=== PATIENT | male | born 1990 | race African-American/Black ===

== ENCOUNTER 2024-05-05 18:09 | Emergency (ER) | payer SELFPAY ==
--- NOTE | ~2024-05-05 | XR_ITS ---
EXAMINATION: XR CERVICAL SPINE CLINICAL INFORMATION: Pain COMPARISON: None available. TECHNIQUE: 3 views of the cervical spine were obtained. FINDINGS: There are no prevertebral soft tissue or bony abnormalities demonstrated. No compression fractures or subluxations are identified. Alignment is maintained at the atlanto-axial articulation. The disc spaces are preserved. Mild endplate degenerative changes at C5-C6 and C6-C7. The prevertebral soft tissues are normal. The foramina are patent. 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
[2024-05-05 18:23] VITALS: BP 134/68; PULSE 91; RESP 16; TEMP 37.2; O2SAT 97; BMI 32.8
[2024-05-05] MEDS: Acetaminophen 325 MG TABLET 975 MG PO (22:53)
[2024-05-05 23:29] VITALS: BP 150/79; PULSE 62; RESP 16; TEMP 36.5; O2SAT 97
--- NOTE | 2024-05-06 01:15 | ED_ITS ---
HPI - Back Pain/Injury General Chief Complaint: Back Pain/Injury Stated Complaint: back pain Time Seen by Provider: 05/06/24 01:08 Source: patient Mode of arrival: ambulatory Limitations: no limitations History of Present Illness ED Provider: Dr. Angelique Frye HPI Narrative: Patient comes to the emergency room complaining of numbness/tingling sensation on the left forearm for 1 week. Patient states that he has pain on the neck and radiates towards the left arm. Patient denies any injuries, heavy lifting, or loss of motor function. Related Data Previous Rx's ?Medication ?Instructions ?Recorded gabapentin 100 mg capsule 100 mg PO BID PRN Neuropathy #14 05/06/24 caps Allergies Allergy/AdvReac Type Severity Reaction Status Date / Time shellfish derived AdvReac Itching Verified 05/05/24 18:25 Review of Systems Review of Systems: Constitutional : No Weight loss, No Fever, No Chills, No Night Sweats, No Fatigue, No Malaise ENT/Mouth : No Hearing loss, No Ear Pain, No Nasal Congestion, No Sinus Pain, No Hoarseness, No sore throat, No Rhinorrhea, No Swallowing Difficulty Eyes: No Eye Pain, No Swelling, No Redness, No Foreign Body, No Discharge, No Vision Changes Cardiovascular : No Chest Pain, No SOB, No Dyspnea on Exertion, No Orthopnea, No Edema, No Palpitations Respiratory : No Cough, No Sputum, No Wheezing, No Smoke Exposure, No Dyspnea Gastrointestinal : No Nausea, No Vomiting, No Diarrhea, No Constipation, No abdominal Pain, No Hematochezia, No Melena Genitourinary : no irregular bleeding, No Dysuria, No Urinary Frequency, No Hematuria, No Urinary Incontinence, No Urgency, No Flank Pain, No Urinary Flow Changes, No Hesitancy Musculoskeletal : Complaining of neck pain radiating towards the left arm Skin : No Skin Lesions, No rash Neuro : No Weakness, No Numbness, No Paresthesias, No Loss of Consciousness, No Dizziness, No Headache Psych : No Anxiety/Panic, No Depression, No SI/HI/AH/VH, No Social Issues, Heme/Lymph: No Bruising, No Bleeding,No Lymphadenopathy Endocrine : No Polyuria, No Polydipsia, No Temperature Intolerance PMFSH Social History Social History Advance Directives: No Advance Directives Information Provided: Yes Do you have a plan to hurt others: No Plan Physical Exam Vital Signs: Vital Signs: Last Vital Signs Temp 97.7 F 05/05/24 23:29 Pulse 62 05/05/24 23:29 Resp 16 05/05/24 23:29 BP 150/79 H 05/05/24 23:29 Pulse Ox 97 05/05/24 23:29 O2 Del Method Room Air 05/05/24 23:29 BMI result Body Mass Index 32.8 Const: Other: Appearance: Alert. Oriented X3. No acute distress. Eyes: Pupils equal, round and reactive to light. ENT: Pharynx normal. Neck: Normal inspection. Neck supple. No lymph nodes noted. No crepitus CVS: Normal heart rate and rhythm. Pulses normal. Normal S1 and S2 Respiratory: No respiratory distress. Breath sounds normal. No Wheezing. No rales Abdomen: Soft and nontender. No rigidity. No distention. Skin: Skin warm and dry. Normal skin color. Normal skin turgor. Extremities: No lower extremity edema. No Lacerations. No Rash, no pain to palpation over the neck. Normal strength 5/5 in both upper extremities Neuro: Oriented X 3. No motor deficit. No sensory deficit. Moving all extremities. No slurred speech. CN 2 through 12 grossly intact Psych: calm, cooperative, normal affect Medications Administered Discontinued Medications Generic Name Dose Route Start Last Admin Trade Name Freq PRN Reason Stop Dose Admin Acetaminophen 975 mg 05/05/24 22:52 05/05/24 22:53 Acetaminophen 325 Mg Tablet PO 05/05/24 22:53 975 mg ONCE ONE Administration Medical Decision Making Medical Decision Making [facility] Narrative: -my interpretation of x-ray of the neck, no obvious abnormality -I discussed the x-ray findings with the patient . Also physical exam -patient likely has cervical radiculopathy. Patient instructed to follow-up with his primary care physician as he may need physical therapy and or MRI Independent Interpretation I performed an independent interpretation of an: Plain X-Ray Radiology Impression Discussion of test interpretation with radiology: I have reviewed the radiologist's reading. Radiologist Impression: There are no prevertebral soft tissue or bony abnormalities demonstrated. No compression fractures or subluxations are identified. Alignment is maintained at the atlanto-axial articulation. The disc spaces are preserved. Mild endplate degenerative changes at C5-C6 and C6-C7. The prevertebral soft tissues are normal. The foramina are patent. 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 Discharge Plan Discharge Clinical Impression: Cervical radiculopathy Patient Disposition: Home, Self-Care Instructions: Cervical Radiculopathy (ED) Additional Instructions: Please follow-up with your primary care physician tomorrow. If you have any worsening or new symptoms, please return to the emergency room or call 911 Prescriptions: New gabapentin 100 mg capsule 100 mg PO BID PRN (Reason: Neuropathy) Qty: 14 0RF Print Language: [place]
== END 2024-05-06 01:25 | disposition home or self-care (01) ==
PROVIDERS: Emergency Provider Emergency Medicine
DX: M54.12 Radiculopathy, cervical region (principal); M79.602 Pain in left arm; M54.2 Cervicalgia
CPT/HCPCS: 72040; 99283